=== PATIENT | female | born 2000 | race African-American/Black ===

== ENCOUNTER 2023-08-07 09:37 | Emergency (ER) | payer SELFPAY ==
--- NOTE | ~2023-08-07 | XR_ITS ---
EXAMINATION: XR CHEST CLINICAL INFORMATION: Chest pain COMPARISON: None available. TECHNIQUE: Frontal view of the chest was obtained. FINDINGS: No significant abnormality is noted involving the heart, lungs, mediastinum, bony thorax or soft tissues. XR/XR chest 1V IMPRESSION: Unremarkable examination.
[2023-08-07 09:46] VITALS: BP 106/69; BP 113/67; PULSE 76; PULSE 80; RESP 18; TEMP 36.8; O2SAT 100; BMI 30.2
--- NOTE | 2023-08-07 09:49 | ECG_ITS ---
Test Reason : CP Blood Pressure : / mmHG Vent. Rate : 073 BPM Atrial Rate : 073 BPM P-R Int : 168 ms QRS Dur : 090 ms QT Int : 354 ms P-R-T Axes : 050 059 040 degrees QTc Int : 389 ms Normal sinus rhythm with sinus arrhythmia Normal ECG No previous ECGs available Referred By: Rebecca Link Electronically Signed By:Rolando Boswell
--- NOTE | 2023-08-07 09:49 | ED_ITS ---
HPI - Chest Pain General Chief Complaint: Chest Pain Stated Complaint: CHEST PAIN Time Seen by Provider: 08/07/23 09:44 Source: patient Mode of arrival: EMS Limitations: no limitations History of Present Illness HPI narrative: 23 yo female with no sig PMH does have nexplanon here with sharp chest pain worse with movements starting today while helping her niece get ready for school at 7am. No other associated symptoms. No hx of VTE or ACS. Just had possible slight cold. Hurts to move MD complaint: chest pain Onset (ago): hour(s) (7am today) Timing of current episode: episodic Prior episodes: Yes (has had this before) Onset: during rest Pain location: left chest Pain radiation: none Severity: mild Quality: sharp Relieving factors: nothing Exacerbating factors: movement Context: recent illness Treatment prior to arrival: none Related Data Previous Rx's Medication Instructions Recorded ibuprofen 600 mg tablet 600 mg PO Q6H PRN pain #30 tabs 08/07/23 Allergies Allergy/AdvReac Type Severity Reaction Status Date / Time No Known Allergies Allergy Verified 08/07/23 09:46 Review of Systems 2 Review of Systems: Constitutional : No Weight loss, No Fever, No Chills ENT/Mouth : No sore throat, No Rhinorrhea Eyes: No Eye Pain, No Swelling Cardiovascular : pos Chest Pain, no SOB, no Dyspnea on Exertion, No Orthopnea, No Edema, No Palpitations Respiratory : No Cough, No Sputum Gastrointestinal : no Nausea, No Vomiting, No Diarrhea, No abdominal Pain, No Hematochezia, No Melena Genitourinary : No Dysuria, No Urinary Frequency Musculoskeletal : No joint pain, No Myalgias, No Joint Swelling Skin : No Skin Lesions, No rash Neuro : No Weakness, No Numbness, No Dizziness, No Headache Psych : No Anxiety/Panic, No Depression All other systems reviewed and are negative [facility] Past Medical History Attestation statement: The following information was validated with the patient. Source: old records reviewed Medical History No pertinent past medical history Social History Social History (Updated 08/07/23 @ 09:50 by Rebecca Link DO) Patient Tobacco Use Status: Never used Tobacco Smoked in Last 30 Days: No Use of substances other than those prescribed or required for medical reasons: No Advance Directives: No Advance Directives Information Provided: Yes Patient : No Physical Exam 2 Vital Signs: Vital Signs: Last Vital Signs Temp 98.3 F 08/07/23 09:46 Pulse 76 08/07/23 09:46 Resp 18 08/07/23 09:46 BP 113/67 08/07/23 09:46 Pulse Ox 100 08/07/23 09:46 O2 Del Method Room Air 08/07/23 09:46 BMI result Body Mass Index 30.2 Appearance: Alert. Oriented X3. No acute distress. Eyes: Pupils equal, round and reactive to light. ENT: Pharynx normal. Neck: Normal inspection. Neck supple. CVS: Normal heart rate and rhythm. Pulses normal. Chest: mild ttp L chest wall Respiratory: No respiratory distress. Breath sounds normal. Abdomen: Soft and nontender. Skin: Skin warm and dry. Normal skin color. Normal skin turgor. Extremities: No lower extremity edema. No calf ttp Neuro: Oriented X 3. No motor deficit. No sensory deficit. Medications Administered Discontinued Medications Generic Name Dose Route Start Last Admin Trade Name Freq PRN Reason Stop Dose Admin Ketorolac Tromethamine 15 mg 08/07/23 09:48 08/07/23 10:41 Ketorolac Tromethamine 15 Mg/Ml Vial IVPUSH 08/07/23 09:49 15 mg ONCE ONE Administration Medical Decision Making Medical Decision Making [facility] Narrative: 23 yo female no sig PMH no hx of ACS or VTE at this time will need trop x 1 given 3 hours of atypical sharp chest pain, EKG, CXR and ddimer given nexplanon it hurts to move so in setting of viral I suspect this is likely costochondritis in nature. Differential Diagnosis Differential Diagnoses: The differential diagnosis associated with the presentation includes costochondritis, low prob VTE, atypical chest pain, doubt ACS Admission/Observation Consideration of admission/observation: Escalation of care including admission/observation considered 3 hour workup negative stable for DC Lab Data [facility] Lab Attestation statement: I reviewed the patient's lab results. 08/07/23 09:57 08/07/23 09:57 Labs: Lab Results 08/07/23 Range/Units 09:57 WBC 4.3 L (4.8-10.8) X10*3/uL RBC 3.91 L (4.20-5.50) X10*6/uL Hgb 11.6 L (12.0-16.0) g/dl Hct 35.0 L (37.0-47.0) % MCV 89.5 (80.0-98.0) fL MCH 29.7 (27.0-33.0) pg MCHC 33.1 (31.0-35.0) g/dl RDW 12.2 (11.0-16.0) % Plt Count 249 (160-400) X10*3/uL MPV 10.5 (9.4-12.3) fL Immature Gran % (Auto) 0.2 (0.0-0.4) % Neut % (Auto) 47.6 (45-73) % Lymph % (Auto) 39.2 (20-40) % [place] % (Auto) 7.4 (2-11) % Eos % (Auto) 5.1 H (0-4) % Baso % (Auto) 0.5 (0-2) % Lymph # (Auto) 1.7 (1.2-4.9) X10*3/uL [place] # (Auto) 0.3 (0.1-1.2) X10*3/uL Eos # (Auto) 0.2 (0.0-0.4) X10*3/uL Baso # (Auto) 0.0 (0.0-0.2) X10*3/uL Abs Immat Gran (auto) 0.01 (0.00-0.03) X10*3/uL Absolute Neuts (auto) 2.1 (2.0-8.3) x10*3/uL Absolute Nucleated RBC 0.000 (0.0-0.012) X10*3/uL Nucleated RBC % (auto) 0.0 (0.0-0.2) /100WBC D-Dimer High Sensitivty < 150 NG/ML Sodium 140 (135-145) mmol/L Potassium 3.6 (3.3-5.1) mmol/L Chloride 110 H (96-108) mmol/L Carbon Dioxide 23 (22-29) mmol/L Anion Gap 11 L (12-20) BUN 9 (9-16) mg/dL Creatinine 0.76 (0.5-1.4) mg/dL Estim Creat Clear Calc 103.9 Estimated GFR > 60 Random Glucose 75 (60-115) mg/dL Calcium 9.1 (8.4-10.2) mg/dL Magnesium 2.0 (1.6-2.6) mg/dL Total Bilirubin 0.4 (0.0-1.0) mg/dL Direct Bilirubin 0.2 (0.0-0.5) mg/dL AST 11 (5-31) U/L ALT 13 (0-31) U/L Alkaline Phosphatase 71 (39-117) U/L Troponin I High Sens < 2.7 (<3.5-17.0) ng/L Total Protein 7.3 (6.5-8.0) g/dL Albumin 4.0 (3.5-5.0) g/dL Independent Interpretation I performed an independent interpretation of an: EKG and Plain X-Ray Interpretation: Rate: 73 Rhythm: NSR [place]: normal Normal P waves. Normal DAMARI. Normal QRS complex. ST T wave : normal no RJ qTC: 389 prior studies: no acute ischemia The study has been interpreted contemporaneously by me. . Radiology Impression Discussion of test interpretation with radiology: I have reviewed the radiologist's reading. Prescription Management I considered prescription management with: Pain Medication Discharge Plan Discharge Clinical Impression: Atypical chest pain, Acute costochondritis Patient Disposition: Home, Self-Care Instructions: Chest Pain (ED), Costochondritis (ED) Additional Instructions: EKG, heart test, blood clot test, labs reassuring. very mild anemia can follow up with your doctor please return for worsening symptoms or concerns. take motrin as needed for pain. negative COVID Prescriptions: New ibuprofen 600 mg tablet 600 mg PO Q6H PRN (Reason: pain) Qty: 30 0RF Stand Alone Forms: Work/School Release
[2023-08-07 10:10] LABS: MANUAL DIFF FLAG NO
[2023-08-07 10:18] LABS: Basophils Percent Auto 0.5 % (0-2); Eosinophils Absolute Auto 0.2 X10*3/uL (0.0-0.4); Eosinophils Percent Auto 5.1 % (0-4); Hemoglobin 11.6 g/dl (12.0-16.0); Imm Gran Abs Auto 0.01 X10*3/uL (0.00-0.03); Imm Gran Pct Auto 0.2 % (0.0-0.4); Lymphocytes Absolute Auto 1.7 X10*3/uL (1.2-4.9); Lymphocytes Percent Auto 39.2 % (20-40); Mean Corpuscular HGB Conc 33.1 g/dl (31.0-35.0); Mean Corpuscular Hemoglobin 29.7 pg (27.0-33.0); Mean Corpuscular Volume 89.5 fL (80.0-98.0); Mean Platelet Volume 10.5 fL (9.4-12.3); Monocytes Absolute Auto 0.3 X10*3/uL (0.1-1.2); Monocytes Percent Auto 7.4 % (2-11); Neutrophils Absolute Auto 2.1 x10*3/uL (2.0-8.3); Neutrophils Percent Auto 47.6 % (45-73); Platelet Count 249 X10*3/uL (160-400); Red Blood Count 3.91 X10*6/uL (4.20-5.50); Red Cell Distribution Width 12.2 % (11.0-16.0); White Blood Count 4.3 X10*3/uL (4.8-10.8)
[2023-08-07 10:25] LABS: D Dimer High Sensitivity < 150 NG/ML
[2023-08-07 10:27] LABS: Alanine Aminotransferase 13 U/L (0-31); Alkaline Phosphatase 71 U/L (39-117); Anion Gap 11 (12-20); Aspartate Amino Transferase 11 U/L (5-31); Bilirubin Direct 0.2 mg/dL (0.0-0.5); Bilirubin Total 0.4 mg/dL (0.0-1.0); Blood Urea Nitrogen 9 mg/dL (9-16); Calcium 9.1 mg/dL (8.4-10.2); Carbon Dioxide 23 mmol/L (22-29); Chloride 110 mmol/L (96-108); Creatinine Clr Calc Pharmacy 103.9; Estimated Glomerular Filt Rate > 60; Glucose Random 75 mg/dL (60-115); Potassium 3.6 mmol/L (3.3-5.1); Sodium 140 mmol/L (135-145); Total Protein 7.3 g/dL (6.5-8.0)
[2023-08-07] MEDS: Ketorolac Tromethamine 15 MG/ML VIAL IVPUSH (10:41)
--- NOTE | 2023-08-07 10:42 | PC.NURSE ---
patient a&ox3, scientific manager intact nsr 60s, vss, labs drawn, swab obtained, pt medicated for mid sternal chest pain, call suero within reach, will continue to monitor
[2023-08-07 10:44] LABS: Troponin-I High Sensitivity < 2.7 ng/L (<3.5-17.0)
[2023-08-07 10:48] LABS: COVID-19 Test Negative (Negative); IDNOW Serial# 9DB6401D
[2023-08-07 11:04] VITALS: BP 107/75; PULSE 69; RESP 18; TEMP 36.8; O2SAT 98
== END 2023-08-07 11:05 | disposition home or self-care (01) ==
PROVIDERS: Emergency Provider Emergency Medicine
DX: R07.89 Other chest pain (principal); M94.0 Chondrocostal junction syndrome [Tietze]; Z11.52 Encounter for screening for COVID-19
CPT/HCPCS: 36415; 71045; 80048; 80076; 83735; 84484; 85025; 85379; 87635; 93005; 96374; 99284; 99285; J1885

== ENCOUNTER → 2023-08-07 09:49 | Outpatient (BNV) | payer SELFPAY | PROVIDERS: Emergency Provider Emergency Medicine; Visit Provider Internal Medicine Cardiovascular Disease | DX: I49.9 Cardiac arrhythmia, unspecified (principal) | CPT/HCPCS: 93010 ==